=== PATIENT | female | born 1990 | race Caucasian/White ===

== ENCOUNTER 2025-03-09 12:03 | Emergency (ER) | payer OTHER ==
[~2025-03-09] VITALS: Ht 170.2 cm; Wt 73.0 kg
--- OUTSIDE RECORDS SUMMARY | 2025-03-09 12:09 | XMS ---
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: [facility] PHONE: [phone] Cirilo has no Care Guidelines for this patient. [place] VISIT COUNT (12 MO.) [id number] [address] [facility] NOTE: Visits indicate total known visits. ED/UCC VISIT TRACKING (12 MO.) 03/09/2025 12:03 [place] [facility] [place] TYPE: Emergency COMPLAINT: - ALCOHOL WITHDRAWA 02/08/2025 18:19 [facility] TYPE: Emergency COMPLAINT: - puking all day, sweating DIAGNOSES: - Alcohol abuse, uncomplicated - Nausea with vomiting, unspecified - puking all day, sweating - Vomiting 12/29/2024 16:11 [facility] [place] TYPE: Emergency COMPLAINT: - WITHDRAWAL DIAGNOSES: - Alcohol dependence with withdrawal, unspecified - Allergy status to penicillin INPATIENT VISIT TRACKING (12 MO.) No inpatient visits to display in this time frame [email or web address]
[2025-03-09] MEDS ORDERED: PROZAC20 MG PO (12:29)
[2025-03-09] MEDS ORDERED: CHLORDIAZEPOXIDE 25 MG CAP PO ONE (13:00)
[2025-03-09] MEDS ORDERED: ONDANSETRON ODT8 MG PO (13:03)
[2025-03-09] MEDS ORDERED: NALTREXONE HCL50 MG PO (13:03)
[2025-03-09] MEDS ORDERED: CHLORDIAZEPOXID25 MG PO (13:03)
[2025-03-09 13:16] VITALS: BP 139/100
== END 2025-03-09 13:16 | disposition home or self-care (01) ==
LOC: ED 12:03
DX: F10.10 Alcohol abuse, uncomplicated (principal); Z88.0 Allergy status to penicillin; Z79.899 Other long term (current) drug therapy
CPT/HCPCS: 99284